=== PATIENT | male | born 1965 | race Caucasian/White ===

== ENCOUNTER 2016-07-22 14:44 | Inpatient (IN) | payer MEDICARE ==
[~2016-07-22] VITALS: Ht 182.9 cm; Wt 83.1 kg
[2016-07-22 19:30] VITALS: BP 104/64
[2016-07-22] MEDS ORDERED: LORazepam 2 MG/ML VIAL ONE (21:40)
[2016-07-22] MEDS ORDERED: DiphenhydrAMINE HCL 50 MG/ML VIAL ONE (21:41)
[2016-07-22] MEDS ORDERED: HALOPERIDOL LACTATE 5 MG/ML VIAL ONE (21:41)
[2016-07-22] MEDS ORDERED: DiphenhydrAMINE HCL 50 MG/ML VIAL IM ONE (21:45)
[2016-07-22] MEDS ORDERED: HALOPERIDOL LACTATE 5 MG/ML VIAL IM ONE (21:45)
[2016-07-22] MEDS ORDERED: LORazepam 2 MG/ML VIAL IM ONE (21:45)
[2016-07-23 08:08] LABS: BASOPHILS % (AUTO) 0.5 % (0.0-2.0); EOSINOPHILS % (AUTO) 3.3 % (1.0-6.0); HEMATOCRIT 47.8 % (41-53); HEMOGLOBIN 15.8 g/dL (13.5-17.5); LYMPHOCYTES # (AUTO) 2.3 K/uL (1.0-4.8); LYMPHOCYTES % (AUTO) 37.7 % (22.0-44.0); MEAN CORPUSCULAR HEMOGLOBIN 29.5 pg (26.0-34.0); MEAN CORPUSCULAR VOLUME 89 fL (80-100); MONOCYTES # (AUTO) 0.7 K/uL (0.1-1.0); MONOCYTES % (AUTO) 12.4 % (2.0-9.0); NEUTROPHILS # (AUTO) 2.8 K/uL (1.8-7.7); NEUTROPHILS % (AUTO) 46.1 % (40.0-70.0); PLATELET COUNT (AUTO) 267 K/uL (150-450); RED BLOOD CELL COUNT(AUTO) 5.35 MIL/uL (4.50-5.90); RED CELL DISTRIBUTION WIDTH 13.9 % (11.5-14.5)
[2016-07-23 08:18] LABS: ALANINE AMINOTRANSFERASE 151 U/L (12-78); ALBUMIN 3.3 g/dL (3.4-5.0); ANION GAP 7 mmol/L (8-16); ASPARTATE AMINOTRANSFERASE 76 U/L (15-37); BILIRUBIN,TOTAL 0.3 mg/dL (0.1-1.0); CALCIUM, TOTAL 8.6 mg/dL (8.8-10.5); CARBON DIOXIDE 27 mmol/L (22-29); CHLORIDE 102 mmol/L (98-107); GLOMERULAR FILTR. RATE CALC > 60 mL/min (>60); POTASSIUM 4.2 mmol/L (3.5-5.1); SODIUM SERUM 136 mmol/L (136-145); UREA NITROGEN, BLOOD 16 mg/dL (7-18)
[2016-07-23] MEDS: NICOTINE 14 MG/24 HOUR PATCH TD SCH (09:00)
[2016-07-23 13:46] VITALS: BP 112/68
[2016-07-23 16:33] VITALS: BP 126/61
[2016-07-24 08:00] VITALS: BP 119/73
[2016-07-24] MEDS: NICOTINE 14 MG/24 HOUR PATCH TD SCH (10:11)
[2016-07-24] MEDS: CITALOPRAM HYDROBROMIDE 20 MG TABLET PO SCH (13:10)
[2016-07-24 20:17] VITALS: BP 137/89
[2016-07-25] MEDS: LORazepam 2 MG TABLET PO PRN (01:26)
[2016-07-25] MEDS: ZOLPIDEM TARTRATE 10 MG TABLET PO PRN ×2 (01:26→22:20)
[2016-07-25 09:43] VITALS: BP 126/76
[2016-07-25] MEDS: CITALOPRAM HYDROBROMIDE 20 MG TABLET PO SCH (09:54)
[2016-07-25] MEDS: NICOTINE 14 MG/24 HOUR PATCH TD SCH (09:57)
[2016-07-25] MEDS: ACETAMINOPHEN 325 MG TABLET PO PRN (16:13)
[2016-07-25 16:24] VITALS: BP 122/79
[2016-07-26] MEDS: CITALOPRAM HYDROBROMIDE 20 MG TABLET PO SCH (10:22)
[2016-07-26] MEDS: NICOTINE 14 MG/24 HOUR PATCH TD SCH (10:26)
[2016-07-26 12:03] VITALS: BP 122/75
[2016-07-26] MEDS: ACETAMINOPHEN 325 MG TABLET PO PRN (16:08)
[2016-07-26 16:13] VITALS: BP 117/74
[2016-07-26] MEDS: ZOLPIDEM TARTRATE 10 MG TABLET PO PRN (20:33)
[2016-07-26] MEDS: HALOPERIDOL 5 MG TABLET PO PRN (20:33)
[2016-07-27] MEDS: MUPIROCIN CALCIUM 2% 22 GM OINTMENT NASAL SCH ×3 (09:00→16:32)
[2016-07-27] MEDS: NICOTINE 14 MG/24 HOUR PATCH TD SCH (09:42)
[2016-07-27] MEDS: CLINDAMYCIN HCL 300 MG CAPSULE PO SCH ×3 (09:42→16:33)
[2016-07-27] MEDS: CITALOPRAM HYDROBROMIDE 20 MG TABLET PO SCH (09:42)
[2016-07-27 10:20] VITALS: BP 115/74
[2016-07-27 17:52] VITALS: BP 122/79
[2016-07-27] MEDS: HALOPERIDOL 5 MG TABLET PO PRN (20:49)
[2016-07-27] MEDS: LORazepam 2 MG TABLET PO PRN (20:49)
[2016-07-27] MEDS: ZOLPIDEM TARTRATE 10 MG TABLET PO PRN (22:38)
[2016-07-28] VITALS: BP 110/61
[2016-07-28 08:00] VITALS: BP 111/65
[2016-07-28] MEDS: CITALOPRAM HYDROBROMIDE 20 MG TABLET PO SCH (09:08)
[2016-07-28] MEDS: CLINDAMYCIN HCL 300 MG CAPSULE PO SCH ×3 (09:12→16:19)
[2016-07-28] MEDS: MUPIROCIN CALCIUM 2% 22 GM OINTMENT NASAL SCH ×3 (09:13→16:18)
[2016-07-28] MEDS: NICOTINE 14 MG/24 HOUR PATCH TD SCH (09:13)
[2016-07-28] MEDS: LORazepam 2 MG TABLET PO PRN (16:25)
[2016-07-28 19:46] VITALS: BP 114/72
[2016-07-28] MEDS: ZOLPIDEM TARTRATE 10 MG TABLET PO PRN (22:44)
[2016-07-28] MEDS: HALOPERIDOL 5 MG TABLET PO PRN (22:44)
[2016-07-29] MEDS: CITALOPRAM HYDROBROMIDE 20 MG TABLET PO SCH (09:30)
[2016-07-29] MEDS: NICOTINE 14 MG/24 HOUR PATCH TD SCH (09:31)
[2016-07-29] MEDS: CLINDAMYCIN HCL 300 MG CAPSULE PO SCH ×3 (09:32→16:58)
[2016-07-29] MEDS: MUPIROCIN CALCIUM 2% 22 GM OINTMENT NASAL SCH ×3 (09:32→16:58)
[2016-07-29 09:45] VITALS: BP 121/67
[2016-07-29] MEDS: LORazepam 2 MG TABLET PO PRN ×2 (12:11→16:57)
[2016-07-29 16:38] VITALS: BP 129/79
[2016-07-29] MEDS: HALOPERIDOL 5 MG TABLET PO PRN (16:57)
[2016-07-30] MEDS: CITALOPRAM HYDROBROMIDE 20 MG TABLET PO SCH (09:43)
[2016-07-30] MEDS: CLINDAMYCIN HCL 300 MG CAPSULE PO SCH ×3 (09:43→16:20)
[2016-07-30] MEDS: NICOTINE 14 MG/24 HOUR PATCH TD SCH (09:44)
[2016-07-30] MEDS: MUPIROCIN CALCIUM 2% 22 GM OINTMENT NASAL SCH ×3 (09:44→16:33)
[2016-07-30 10:49] VITALS: BP 128/81
[2016-07-30] MEDS: LORazepam 2 MG TABLET PO PRN (16:20)
[2016-07-30] MEDS: HALOPERIDOL 5 MG TABLET PO PRN (16:30)
[2016-07-30 17:11] VITALS: BP 119/76
[2016-07-30] MEDS: ZOLPIDEM TARTRATE 10 MG TABLET PO PRN (23:40)
[2016-07-31] MEDS ORDERED: CITA20TA9 PO (04:35)
[2016-07-31] MEDS ORDERED: CLIN300C3 PO ×2 (06:20→06:56)
[2016-07-31 06:43] VITALS: BP 121/72
[2016-07-31] MEDS: CITALOPRAM HYDROBROMIDE 20 MG TABLET PO SCH (08:17)
[2016-07-31] MEDS: NICOTINE 14 MG/24 HOUR PATCH TD SCH (08:18)
[2016-07-31] MEDS: CLINDAMYCIN HCL 300 MG CAPSULE PO SCH ×2 (08:19→11:58)
[2016-07-31] MEDS: MUPIROCIN CALCIUM 2% 22 GM OINTMENT NASAL SCH ×2 (09:54→11:57)
== END 2016-07-31 10:00 | disposition home or self-care (01) | DRG 885 ==
LOC: 3EI 19:20 → 3EC 22:17 → 3EI 07-27 23:45
PROVIDERS: ADMIT Psychiatry & Neurology Psychiatry; ATTEND Psychiatry & Neurology Psychiatry
DX: F25.9 Schizoaffective disorder, unspecified (principal); F33.2 Major depressive disorder, recurrent severe without psychotic features; H91.90 Unspecified hearing loss, unspecified ear; J34.0 Abscess, furuncle and carbuncle of nose; F41.9 Anxiety disorder, unspecified; F29 Unspecified psychosis not due to a substance or known physiological condition; F17.210 Nicotine dependence, cigarettes, uncomplicated; F19.10 Other psychoactive substance abuse, uncomplicated; F90.9 Attention-deficit hyperactivity disorder, unspecified type; F10.10 Alcohol abuse, uncomplicated; F15.90 Other stimulant use, unspecified, uncomplicated; Z59.0 Homelessness; Z79.899 Other long term (current) drug therapy
CPT/HCPCS: J1200; J1630; J2060